=== PATIENT | male | born 1935 | race Caucasian/White ===

== ENCOUNTER 2018-09-06 08:00 | Inpatient (IN) | payer MEDICARE, OTHER ==
[~2018-09-06] VITALS: Ht 175.3 cm; Wt 106.6 kg
[~2018-09-06 08:00] MED LIST: ASPI-496 PO; BACITRACIN 50,000 UNIT ONE; BUPIVACAINE/PF 0.25% ONE; BUPIVACAINE/PF-EPI 0.5% 1:200K ONE; FINA5TAB4 PO; METO25TA91 PO; RAMI10CA59 PO; TAMS-11 PO; THROMBIN 5,000 UNIT VIAL TP ONE
[2018-09-06] MEDS ORDERED: VANCOMYCIN 1,000 MG ONE (10:04)
[2018-09-06] MEDS ORDERED: LACTATED RINGERS 1,000 ML IV SCH (10:19)
[2018-09-06] MEDS ORDERED: GABAPENTIN 300 MG CAPSULE PO ONE (10:30)
[2018-09-06] MEDS ORDERED: ACETAMINOPHEN 500 MG TABLET PO ONE (10:30)
[2018-09-06] MEDS ORDERED: FENTANYL PF 250 MCG/5ML ONE (10:53)
[2018-09-06] MEDS ORDERED: PROPOFOL 50 ML ONE ×4 (10:57→15:38)
[2018-09-06] MEDS ORDERED: PROPOFOL 10 MG/ML, 20ML ONE (11:01)
[2018-09-06] MEDS ORDERED: NEOSTIGMINE 1 MG/ML, 10ML ONE (11:01)
[2018-09-06] MEDS ORDERED: CEFAZOLIN 1,000 MG ONE (11:01)
[2018-09-06] MEDS ORDERED: ROCURONIUM 10MG/ML,5ML ONE (11:01)
[2018-09-06] MEDS ORDERED: GLYCOPYRROLATE 0.2MG/1ML, 5ML ONE (11:01)
[2018-09-06] MEDS ORDERED: OXYcodone 5 MG/5 ML ORAL.SOL UDC PO PRN (13:00)
[2018-09-06] MEDS ORDERED: PROMETHAZINE 25 MG/ML, 1ML IV PRN (13:00)
[2018-09-06] MEDS ORDERED: MEPERIDINE/PF 25MG/0.5ML IVPush PRN (13:00)
[2018-09-06] MEDS ORDERED: PROMETHAZINE 25 MG/ML, 1ML IM PRN ×3 (13:00→16:30)
[2018-09-06] MEDS ORDERED: hydrALAzine 20 MG/ML, 1ML IV PRN (13:00)
[2018-09-06] MEDS ORDERED: MORPHINE SULFATE 4 MG/ML, 1ML IVPush PRN (13:00)
[2018-09-06] MEDS ORDERED: ONDANSETRON 2MG/ML, 2ML IV PRN (13:00)
[2018-09-06] MEDS ORDERED: PROMETHAZINE 12.5 MG SUPP PR PRN (13:00)
[2018-09-06] MEDS ORDERED: HYDROmorphone 2 MG/ML, 1ML IVPush PRN (13:00)
[2018-09-06] MEDS ORDERED: ONDANSETRON ODT 8 MG PO PRN (13:00)
[2018-09-06] MEDS ORDERED: LABETALOL 5MG/ML, 20ML IV PRN (13:00)
[2018-09-06] MEDS ORDERED: PROMETHAZINE 25 MG SUPP PR PRN (13:00)
[2018-09-06] MEDS ORDERED: PHENYLEPHRINE 10 MG/ML ONE (13:07)
[2018-09-06] MEDS ORDERED: EPHEDRINE 50 MG/ML, 1ML ONE ×2 (13:07→16:34)
[2018-09-06] MEDS ORDERED: VASOPRESSIN 20 UNIT/ML, 1ML ONE (13:56)
[2018-09-06] MEDS ORDERED: VANCOMYCIN 1,000 MG IM ONE (15:32)
[2018-09-06] MEDS ORDERED: PHARMACY MAY ADJ FOR RENAL FX MC PRN (16:30)
[2018-09-06] MEDS ORDERED: ONDANSETRON 2MG/ML, 2ML IVPush PRN (16:30)
[2018-09-06] MEDS ORDERED: HYDROcodone/APAP 5/325 TABLET PO PRN (16:30)
[2018-09-06] MEDS ORDERED: MAGNESIUM HYDROXIDE 8%, 30ML UDC PO PRN (16:30)
[2018-09-06] MEDS ORDERED: morphine SULFATE 10 MG/ML, 1ML IVPush PRN (16:30)
[2018-09-06] MEDS ORDERED: DIPHENHYDRAMINE 50 MG/ML, 1ML IVPush PRN (16:30)
[2018-09-06] MEDS ORDERED: BISACODYL 10 MG SUPP PR PRN (16:30)
[2018-09-06] MEDS ORDERED: HYDROcodone/APAP 10/325 MG TABLET PO PRN (16:30)
[2018-09-06] MEDS ORDERED: FENTANYL PF 100 MCG/2ML ONE (16:56)
[2018-09-06] MEDS ORDERED: OXYcodone 5 MG/5 ML ORAL.SOL UDC ONE (16:56)
[2018-09-06] MEDS: FENTANYL PF 100 MCG/2ML IV PRN ×4 (17:02→17:25)
[2018-09-06] MEDS ORDERED: HYDROmorphone 2 MG/ML, 1ML ONE (17:26)
[2018-09-06] MEDS ORDERED: EPHEDRINE 50 MG/ML, 1ML IVPush PRN (17:30)
[2018-09-06 18:15] VITALS: BP 131/65
[2018-09-06] MEDS: CYCLOBENZAPRINE 10 MG TABLET PO PRN (20:54)
[2018-09-06] MEDS: TAMSULOSIN 0.4 MG CAP.ER.24H PO SCH (20:54)
[2018-09-06] MEDS: OXYcodone/APAP 5/325MG TABLET PO PRN (20:57)
[2018-09-06] MEDS: D5%-0.9% NACL+KCL 20MEQ 1,000 ML IV SCH (20:57)
[2018-09-06] MEDS: CEFAZOLIN PMX 1GM/50ML 50 ML IVPB SCH (21:07)
[2018-09-06] MEDS: SODIUM CHLORIDE FLUSH 10ML SYR IVF SCH (21:08)
[2018-09-07 01:36] VITALS: BP 137/65
[2018-09-07] MEDS: OXYcodone/APAP 5/325MG TABLET PO PRN ×3 (02:14→20:55)
[2018-09-07] MEDS: SENNA/DOCUSATE TABLET PO PRN (02:14)
[2018-09-07 04:15] VITALS: BP 130/68
[2018-09-07] MEDS: D5%-0.9% NACL+KCL 20MEQ 1,000 ML IV SCH ×2 (06:05→16:38)
[2018-09-07] MEDS: CEFAZOLIN PMX 1GM/50ML 50 ML IVPB SCH (06:05)
[2018-09-07 08:42] VITALS: BP 119/58
[2018-09-07] MEDS: FINASTERIDE 5 MG TABLET PO SCH (08:43)
[2018-09-07] MEDS: RAMIPRIL 5 MG CAP PO SCH (08:43)
[2018-09-07] MEDS: SODIUM CHLORIDE FLUSH 10ML SYR IVF SCH ×2 (08:43→20:56)
[2018-09-07] MEDS: TAMSULOSIN 0.4 MG CAP.ER.24H PO SCH ×2 (08:43→20:55)
[2018-09-07] MEDS: METOPROLOL SUCCINATE 25 MG TAB.ER.24H PO SCH (08:43)
[2018-09-07] MEDS ORDERED: RAMIPRIL 10 MG CAPSULE PO SCH (09:00)
[2018-09-07] MEDS: CYCLOBENZAPRINE 10 MG TABLET PO PRN (11:43)
[2018-09-07 13:14] VITALS: BP 96/45
[2018-09-07 19:28] VITALS: BP 110/55
[2018-09-08 01:10] VITALS: BP 130/51
[2018-09-08] MEDS: SENNA/DOCUSATE TABLET PO PRN (02:04)
[2018-09-08] MEDS: D5%-0.9% NACL+KCL 20MEQ 1,000 ML IV SCH ×3 (02:04→21:29)
[2018-09-08 07:24] VITALS: BP 142/75
[2018-09-08] MEDS: METOPROLOL SUCCINATE 25 MG TAB.ER.24H PO SCH (09:00)
[2018-09-08] MEDS: FINASTERIDE 5 MG TABLET PO SCH (09:00)
[2018-09-08] MEDS: TAMSULOSIN 0.4 MG CAP.ER.24H PO SCH ×2 (09:00→21:28)
[2018-09-08] MEDS: SODIUM CHLORIDE FLUSH 10ML SYR IVF SCH ×2 (09:01→21:28)
[2018-09-08] MEDS: RAMIPRIL 5 MG CAP PO SCH (09:01)
[2018-09-08 12:02] VITALS: BP 119/74
[2018-09-08 18:52] VITALS: BP 126/66
[2018-09-09 00:30] VITALS: BP 140/62
[2018-09-09] MEDS: D5%-0.9% NACL+KCL 20MEQ 1,000 ML IV SCH (06:07)
[2018-09-09 07:22] VITALS: BP 134/75
[2018-09-09] MEDS: TAMSULOSIN 0.4 MG CAP.ER.24H PO SCH (08:02)
[2018-09-09] MEDS: METOPROLOL SUCCINATE 25 MG TAB.ER.24H PO SCH (08:03)
[2018-09-09] MEDS: RAMIPRIL 5 MG CAP PO SCH (08:03)
[2018-09-09] MEDS: FINASTERIDE 5 MG TABLET PO SCH (08:03)
[2018-09-09] MEDS: SODIUM CHLORIDE FLUSH 10ML SYR IVF SCH (08:04)
[2018-09-09] MEDS ORDERED: CEPH-368 PO (09:04)
[2018-09-09] MEDS ORDERED: CYCL5TAB PO (09:04)
[2018-09-09] MEDS ORDERED: HYDR-3307 PO (09:04)
[2018-09-09 12:58] VITALS: BP 126/68
[2018-09-09] MEDS: OXYcodone/APAP 5/325MG TABLET PO PRN (13:30)
== END 2018-09-09 13:49 | disposition home health service (06) | DRG 459 ==
LOC: ORIP 09:45 → 4NOR 18:09 → DCLOUNGE 09-09 13:35
PROVIDERS: ADMIT Neurological Surgery; ATTEND Neurological Surgery
PROC: 01NB0ZZ Release Lumbar Nerve, Open Approach (ICD-10-PCS; 2018-09-06)
PROC: 00NY0ZZ Release Lumbar Spinal Cord, Open Approach (ICD-10-PCS; 2018-09-06)
PROC: 4A11X4G Monitoring of Peripheral Nervous Electrical Activity, Intraoperative, External Approach (ICD-10-PCS; 2018-09-06)
PROC: 0SG0071 Fusion of Lumbar Vertebral Joint with Autologous Tissue Substitute, Posterior Approach, Posterior Column, Open Approach (ICD-10-PCS; principal; 2018-09-06 13:00)
DX: M51.16 Intervertebral disc disorders with radiculopathy, lumbar region (principal); R53.2 Functional quadriplegia; M43.16 Spondylolisthesis, lumbar region; M46.90 Unspecified inflammatory spondylopathy, site unspecified; M48.062 Spinal stenosis, lumbar region with neurogenic claudication; N40.0 Benign prostatic hyperplasia without lower urinary tract symptoms; I25.10 Atherosclerotic heart disease of native coronary artery without angina pectoris; I10 Essential (primary) hypertension; M19.90 Unspecified osteoarthritis, unspecified site; Z95.818 Presence of other cardiac implants and grafts; Z87.891 Personal history of nicotine dependence; Z82.49 Family history of ischemic heart disease and other diseases of the circulatory system
CPT/HCPCS: 72100; C1713; G0378; J0690; J1170; J2704; J2710; J3010; J3370; J3490; C1751; C1762; C9352; J2270; J2370; J3480; J7120